=== PATIENT | female | born 1960 | race Two or more races ===

== ENCOUNTER 2023-06-16 11:35 | Emergency (ER) | payer OTHER ==
[~2023-06-16] VITALS: Ht 160 cm; Wt 75.7 kg
[2023-06-16] MEDS ORDERED: GLIMEPIRIDE4 M1 PO (12:05)
[2023-06-16] MEDS ORDERED: GLUMETZA500 MG PO (12:05)
[2023-06-16] MEDS ORDERED: ROSUVASTATIN CA20 MG PO (12:06)
[2023-06-16] MEDS ORDERED: ZYRTEC10 M3 PO (12:06)
[2023-06-16] MEDS ORDERED: FAMOTIDINE/PF 20 MG/2 ML VIAL IV PUSH STA (12:34)
[2023-06-16] MEDS ORDERED: ACETAMINOPHEN 325 MG TABLET PO STA (12:37)
[2023-06-16 13:43] LABS: HEMATOCRIT 37.9 % (36.0-45.00); HEMOGLOBIN 12.8 g/dL (12.0-15.00); MEAN CELL VOLUME 84.6 fL (80.00-100.00); MEAN CORPUSCULAR HEMOGLOBIN 28.5 pg (27.00-32.0); MEAN CORPUSCULAR HGB CONC 33.7 g/dl (32.0-36.0); PLATELET COUNT 255 K/uL (150-450); RED BLOOD COUNT 4.48 M/uL (4.00-6.00); RED CELL DISTRIBUTION WIDTH 13.3 % (11.5-14.5)
[2023-06-16 14:10] LABS: ALBUMIN 3.8 gm/dL (3.4-5.0); BILIRUBIN TOTAL 0.22 mg/dL (0.3-1.2); CALCIUM 9.3 mg/dL (8.5-10.1); CREATININE SERUM 0.69 mg/dL (0.55-1.02); GFR 85.93; GLOBULINA 4.1 G/DL (2.4-3.5); POTASSIUM 4.39 mEq/L (3.5-5.1); TOTAL PROTEIN 7.9 gm/dL (6.4-8.2)
== END 2023-06-16 14:35 | disposition home or self-care (01) ==
LOC: ER 11:36
PROVIDERS: General Practice
DX: K21.9 Gastro-esophageal reflux disease without esophagitis (principal); E11.9 Type 2 diabetes mellitus without complications; Z79.84 Long term (current) use of oral hypoglycemic drugs; Z91.013 Allergy to seafood